=== PATIENT | female | born 1990 | race Caucasian/White ===

== ENCOUNTER 2019-08-16 19:50 | Emergency (ER) | payer MEDICAID ==
[~2019-08-16] VITALS: Ht 154.9 cm; Wt 98.0 kg
[2019-08-16] MEDS ORDERED: SODIUM CHLORIDE 0.9% 1,000 ML IV ONE (20:44)
[2019-08-16 21:05] LABS: BASOPHILS % 0.6 % (0.0-2.0); EOSINOPHILS % 0.5 % (0.0-5.0); HEMATOCRIT. 40.1 % (36.0-48.0); HEMOGLOBIN. 13.8 g/dL (12.0-16.0); MEAN CORPUSCULAR VOLUME 93.2 fL (81.0-99.0); MEAN PLATELET VOLUME 7.6 fl (7.4-10.4); MONOCYTES % 5.8 % (2.0-8.0); NEUTROPHILS % 72.1 % (40.0-76.0); PLATELET 335 x1000/uL (130-400); RED CELL DISTRIBUTION WIDTH 13.4 % (11.6-14.6)
[2019-08-16 21:08] LABS: CHLORIDE 104 mEq/L (98-107)
[2019-08-16 21:09] LABS: INR 0.9
[2019-08-16 21:13] LABS: ETHANOL BLOOD < 10 mg/dL
[2019-08-16] MEDS ORDERED: MORPHINE SULFATE 2 MG/ML CPJ (NOT FOR IM USE) IV ONE (21:30)
[2019-08-16] MEDS ORDERED: ONDANSETRON 4MG ODT PO ONE (21:30)
[2019-08-16 21:33] LABS: B-HCG QUANTITATIVE 26725 mIU/mL (<3)
[2019-08-16 21:35] LABS: CLARITY URINE CLOUDY (CLEAR); COLOR URINE YELLOW (YELLOW); KETONES URINE 1+ (NEGATIVE); LEUKOCYTE ESTERASE URINE 3+ (NEGATIVE); NITRITE URINE NEGATIVE (NEGATIVE); OCCULT BLOOD URINE TRACE (NEGATIVE); PH URINE 5.5 (4.5-8.0); PROTEIN URINE NEGATIVE (NEGATIVE); SPECIFIC GRAVITY URINE 1.021 (1.005-1.030); UROBILINOGEN URINE 0.2 E.U./dL (0.2-1.0)
[2019-08-16 22:03] LABS: *AMPHETAMINES SCREEN URINE NEGATIVE (NEGATIVE); *BARBITURATES SCREEN URINE NEGATIVE (NEGATIVE); *BENZODIAZEPINES SCREEN URINE NEGATIVE (NEGATIVE); *COCAINE SCREEN URINE NEGATIVE (NEGATIVE); METHADONE URINE SCREEN NEGATIVE (NEGATIVE); OPIATES URINE SCREEN NEGATIVE (NEGATIVE)
[2019-08-16 22:04] LABS: CANNABINOID URINE SCREEN NEGATIVE (NEGATIVE); PHENCYCLIDINE URINE SCREEN NEGATIVE (NEGATIVE)
[2019-08-16] MEDS ORDERED: CEFTRIAXONE 1 G PREMIX 50 ML IV ONE (22:15)
[2019-08-17 01:21] VITALS: BP 135/80
== END 2019-08-17 01:24 | disposition home or self-care (01) ==
LOC: ER 19:50
DX: O23.11 Infections of bladder in pregnancy, first trimester (principal); O26.891 Other specified pregnancy related conditions, first trimester; K50.90 Crohn's disease, unspecified, without complications; Z3A.01 Less than 8 weeks gestation of pregnancy; Z88.6 Allergy status to analgesic agent
CPT/HCPCS: 36415; 76705; 76770; 76801; 76817; 80053; 80305; 80320; 81003; 81025; 83690; 84702; 85025; 85610; 96361; 96365; 96375; 99285; J0696; J2270; J7030; Q0162; G0480

== ENCOUNTER 2020-03-15 12:17 | Observation (INO) | payer MEDICAID ==
[~2020-03-15] VITALS: Ht 157.5 cm; Wt 104.3 kg
[2020-03-15] MEDS: LACTATED RINGERS 1,000 ML IV SCH ×3 (14:00→22:38)
[2020-03-15] MEDS ORDERED: ONDANSETRON HCL 4MG/2ML INJ IV PRN (14:00)
[2020-03-15 14:15] LABS: CLARITY URINE CLEAR (CLEAR); COLOR URINE YELLOW (YELLOW); KETONES URINE 3+ (NEGATIVE); LEUKOCYTE ESTERASE URINE 3+ (NEGATIVE); NITRITE URINE NEGATIVE (NEGATIVE); OCCULT BLOOD URINE NEGATIVE (NEGATIVE); PH URINE 7.5 (4.5-8.0); PROTEIN URINE NEGATIVE (NEGATIVE); UROBILINOGEN URINE 0.2 E.U./dL (0.2-1.0)
[2020-03-15 14:23] LABS: CHLORIDE 111 mEq/L (98-107)
[2020-03-15 14:28] LABS: BASOPHILS % 0.2 % (0.0-2.0); EOSINOPHILS % 0.3 % (0.0-5.0); HEMOGLOBIN. 11.1 g/dL (12.0-16.0); LYMPHOCYTES % 13.2 % (20.0-50.0); MEAN PLATELET VOLUME 8.1 fl (7.4-10.4); NEUTROPHILS % 79.3 % (40.0-76.0); PLATELET 276 x1000/uL (130-400); RED BLOOD CELL COUNT 3.82 mill/uL (4.2-5.4); RED CELL DISTRIBUTION WIDTH 14.4 % (11.6-14.6)
[2020-03-15] MEDS ORDERED: CEFAZOLIN SODIUM 1000MG/VIAL ONE (15:23)
[2020-03-15] MEDS ORDERED: POTASSIUM CHLORIDE 20MEQ TABLET SR PO NR (16:00)
[2020-03-15] MEDS ORDERED: CEFAZOLIN 2,000 MG in DEXT 5% WATER 100 ML IV NR (16:30)
[2020-03-15] MEDS: TERBUTALINE SULFATE 1MG/ML VIAL SUBCUT PRN ×2 (17:17→18:27)
[2020-03-15] MEDS ORDERED: CARBOPROST TROMETHAMINE 250 MCG/ML AMPUL IM PRN (20:15)
[2020-03-15] MEDS ORDERED: NALOXONE HCL 0.4 MG/ML 1ML VIAL IM PRN (20:15)
[2020-03-15] MEDS ORDERED: LIDOCAINE HCL 1% 20ML VIAL (Pyxis) INJ INFIL SCH (20:15)
[2020-03-15] MEDS ORDERED: DEXT 5%/LR + PITOCIN 20UNITS/L 1,000 ML IV SCH (20:15)
[2020-03-15] MEDS ORDERED: METHYLERGONOVINE MALEATE 0.2 MG/ML IM PRN (20:15)
[2020-03-15 20:45] LABS: BASOPHILS % 0.5 % (0.0-2.0); EOSINOPHILS % 0.3 % (0.0-5.0); HEMATOCRIT. 34.5 % (36.0-48.0); HEMOGLOBIN. 11.3 g/dL (12.0-16.0); LYMPHOCYTES % 13.5 % (20.0-50.0); MEAN CORPUSCULAR HEMOGLOBIN 29.4 pg (28.0-32.0); MEAN CORPUSCULAR VOLUME 89.6 fL (81.0-99.0); MEAN PLATELET VOLUME 8.4 fl (7.4-10.4); MONOCYTES % 7.6 % (2.0-8.0); NEUTROPHILS % 78.1 % (40.0-76.0); PLATELET 290 x1000/uL (130-400); RED BLOOD CELL COUNT 3.85 mill/uL (4.2-5.4)
[2020-03-15 21:37] LABS: HEPATITIS B SURFACE ANTIGEN NEGATIVE
[2020-03-16] MEDS: METOCLOPRAMIDE HCL 10MG/2ML VIAL IV PRN ×2 (00:35→06:04)
[2020-03-16] MEDS: BUTORPHANOL TARTRATE 2 MG/ML VIAL IV PRN ×3 (00:46→18:34)
[2020-03-16] MEDS ORDERED: MAGNESIUM/ALUMINUM HYDROXIDE/SIMETHICONE 30ML UDC PO PRN (05:00)
[2020-03-16] MEDS: LACTATED RINGERS 1,000 ML IV SCH (06:12)
[2020-03-16 08:30] LABS: PARTIAL THROMBOPLASTIN TIME 26.8 sec (23.4-31.0); PROTHROMBIN TIME 10.5 sec (9.6-11.0)
[2020-03-16 18:34] VITALS: BP 117/62
[2020-03-16 20:02] LABS: BASOPHILS % 0.5 % (0.0-2.0); EOSINOPHILS % 0.3 % (0.0-5.0); HEMATOCRIT. 32.9 % (36.0-48.0); HEMOGLOBIN. 10.8 g/dL (12.0-16.0); LYMPHOCYTES % 14.6 % (20.0-50.0); MEAN CORPUSCULAR HEMOGLOBIN 29.4 pg (28.0-32.0); MEAN CORPUSCULAR VOLUME 89.3 fL (81.0-99.0); MEAN PLATELET VOLUME 8.1 fl (7.4-10.4); MONOCYTES % 9.3 % (2.0-8.0); NEUTROPHILS % 75.3 % (40.0-76.0); PLATELET 279 x1000/uL (130-400); RED BLOOD CELL COUNT 3.69 mill/uL (4.2-5.4); RED CELL DISTRIBUTION WIDTH 14.8 % (11.6-14.6)
[2020-03-16 20:05] LABS: CHLORIDE 111 mEq/L (98-107)
[2020-03-16] MEDS ORDERED: BUSP5TAB3 PO (21:09)
[2020-03-16] MEDS ORDERED: BUTA1CAP17 PO (21:09)
[2020-03-16] MEDS ORDERED: PNV1TABL50 PO (21:09)
[2020-03-16] MEDS ORDERED: MESA1.2T2 PO (21:09)
[2020-03-16] MEDS ORDERED: OMEP10CA5 PO (21:09)
[2020-04-01] MEDS ORDERED: [UNRECOGNIZED DRUG - CODE] TOP (17:38)
[2020-04-01] MEDS ORDERED: APIX5TAB MT (17:39)
== END 2020-03-16 21:25 | disposition home or self-care (01) ==
LOC: UNDOADMOB 12:17 → 8 EST A/PP 12:17 → OB TRIAGE 13:01 → INTOOBSV 23:05 → OB TRIAGE 23:05 → OBSVTOIN 23:05 → 8 EST LDRP 23:05
PROVIDERS: ADMIT Obstetrics & Gynecology; ATTEND Obstetrics & Gynecology
DX: O60.03 Preterm labor without delivery, third trimester (principal); O46.93 Antepartum hemorrhage, unspecified, third trimester; Z3A.36 36 weeks gestation of pregnancy
CPT/HCPCS: 36415; 80053; 81003; 85025; 85610; 85730; 86592; 86762; 86850; 86900; 86901; 87340; 96361; 96365; 96366; 96372; 96375; 96376; G0378; J0595; J0690; J2405; J2765; J3105; J7060; J7120

== ENCOUNTER 2020-03-24 17:36 | Observation (INO) | payer MEDICAID ==
[~2020-03-24] VITALS: Ht 157.5 cm; Wt 122.5 kg
[~2020-03-24 17:36] MED LIST: BUSP5TAB3 PO; BUTA1CAP17 PO; MESA1.2T2 PO; OMEP10CA5 PO; PNV1TABL50 PO
[2020-03-24] MEDS ORDERED: ONDANSETRON HCL 4MG/2ML INJ IV PRN (22:45)
[2020-03-24] MEDS ORDERED: GUAIFENESIN 200MG/10ML SUGAR FREE UDC PO PRN (23:00)
[2020-03-24] MEDS: BUTORPHANOL TARTRATE 2 MG/ML VIAL IV PRN (23:17)
[2020-03-25] MEDS: LACTATED RINGERS 1,000 ML IV SCH ×2 (00:59→01:50)
[2020-03-25] MEDS ORDERED: BUTALBITAL/ACETAMINOPHEN/CAFFEINE 50/325/40MG TABLET PO NR (03:00)
[2020-03-25] MEDS: BUTORPHANOL TARTRATE 2 MG/ML VIAL IV PRN ×2 (03:09→07:04)
[2020-03-25 07:04] VITALS: BP 103/59
[2020-03-25] MEDS ORDERED: CITRIC ACID/SODIUM CITRATE SOLN 30ML UDC PO SCH (07:30)
[2020-03-25 07:33] LABS: HEMATOCRIT 32.4 % (36.0-48.0); HEMOGLOBIN 10.7 g/dL (12.0-16.0); MEAN CORPUSCULAR HEMOGLOBIN 29.2 pg (28.0-32.0); MEAN CORPUSCULAR VOLUME 88.5 fL (81.0-99.0); PLATELET 269 x1000/uL (130-400); RED BLOOD CELL COUNT 3.67 mill/uL (4.2-5.4); RED CELL DISTRIBUTION WIDTH 15.3 % (11.6-14.6)
[2020-03-25 07:41] LABS: CHLORIDE 107 mEq/L (98-107)
[2020-04-01] MEDS ORDERED: [UNRECOGNIZED DRUG - CODE] TOP (17:38)
[2020-04-01] MEDS ORDERED: APIX5TAB MT (17:39)
== END 2020-03-25 10:00 | disposition home or self-care (01) ==
LOC: 8 EST LDRP 17:36
PROVIDERS: ADMIT Obstetrics & Gynecology; ATTEND Obstetrics & Gynecology
DX: O98.513 Other viral diseases complicating pregnancy, third trimester (principal); U07.1 COVID-19; O99.513 Diseases of the respiratory system complicating pregnancy, third trimester; J06.9 Acute upper respiratory infection, unspecified; O99.613 Diseases of the digestive system complicating pregnancy, third trimester; K50.90 Crohn's disease, unspecified, without complications; Z3A.37 37 weeks gestation of pregnancy
CPT/HCPCS: 36415; 59025; 80053; 85027; 96361; 96374; 96375; 96376; G0378; J0595; J2405; J7120; U0003; 96360; 99281

== ENCOUNTER 2020-03-27 18:32 | Observation (INO) | payer MEDICAID ==
[~2020-03-27] VITALS: Ht 157.5 cm; Wt 104.3 kg
[2020-03-27] MEDS ORDERED: ONDANSETRON HCL 4MG/2ML INJ IV PRN (19:15)
[2020-03-27] MEDS ORDERED: LACTATED RINGERS 1,000 ML IV SCH (19:15)
[2020-03-27] MEDS ORDERED: BUTORPHANOL TARTRATE 2 MG/ML VIAL IV PRN (19:30)
[2020-03-27 19:42] LABS: BASOPHILS % 0.5 % (0.0-2.0); HEMATOCRIT. 42.4 % (36.0-48.0); HEMOGLOBIN. 13.8 g/dL (12.0-16.0); LYMPHOCYTES % 16.2 % (20.0-50.0); MEAN CORPUSCULAR HEMOGLOBIN 29.2 pg (28.0-32.0); MEAN CORPUSCULAR VOLUME 89.4 fL (81.0-99.0); MEAN PLATELET VOLUME 8.3 fl (7.4-10.4); MONOCYTES % 8.1 % (2.0-8.0); NEUTROPHILS % 75.2 % (40.0-76.0); PLATELET 367 x1000/uL (130-400); RED BLOOD CELL COUNT 4.74 mill/uL (4.2-5.4); RED CELL DISTRIBUTION WIDTH 15.9 % (11.6-14.6)
[2020-03-27 19:49] LABS: CHLORIDE 107 mEq/L (98-107)
[2020-03-27 20:35] VITALS: BP 145/71
[2020-04-01] MEDS ORDERED: [UNRECOGNIZED DRUG - CODE] TOP (17:38)
[2020-04-01] MEDS ORDERED: APIX5TAB MT (17:39)
== END 2020-03-27 21:45 | disposition home or self-care (01) ==
LOC: 8 EST LDRP 18:32
PROVIDERS: ADMIT Obstetrics & Gynecology; ATTEND Obstetrics & Gynecology
DX: O99.513 Diseases of the respiratory system complicating pregnancy, third trimester (principal); J02.9 Acute pharyngitis, unspecified; O21.9 Vomiting of pregnancy, unspecified; Z3A.38 38 weeks gestation of pregnancy; R05 Cough
CPT/HCPCS: 36415; 59025; 80053; 85025; 96374; 96375; G0378; J0595; J2405; 99281

== ENCOUNTER 2020-03-27 22:11 | Emergency (ER) | payer MEDICAID ==
[~2020-03-27] VITALS: Ht 165.1 cm; Wt 168.0 kg
[2020-03-27 22:30] VITALS: BP 132/81
[2020-04-01] MEDS ORDERED: [UNRECOGNIZED DRUG - CODE] TOP (17:38)
[2020-04-01] MEDS ORDERED: APIX5TAB MT (17:39)
== END 2020-03-28 01:24 | disposition left against medical advice (07) ==
LOC: ER 22:11
DX: Z53.21 Procedure and treatment not carried out due to patient leaving prior to being seen by health care provider (principal)